=== PATIENT | female | born 1980 | race African-American/Black ===

== ENCOUNTER 2016-10-21 08:59 | Emergency (ER) | payer OTHER ==
[2016-10-21 09:14] VITALS: BP 102/79; PULSE 73; TEMP 98.3; BMI 33.5
[2016-10-21] MEDS ORDERED: KETOROLAC TROMETHAMINE 60 MG/2 ML VIAL IM ONE (10:09)
[2016-10-21] MEDS ORDERED: KETOROLAC TROMETHAMINE 60 MG/2 ML VIAL ONE (10:14)
--- NOTE | 2016-10-21 10:15 | PDOC ---
History of Present Illness - General Chief Complaint: Back Pain Stated Complaint: BACK PAIN Time Seen by Provider: 10/21/16 09:48 Exam Limitations: No Limitations - History of Present Illness Initial Comments: 10/21/16 10:12 Chief complaint: Right lower back pain without radiation down legs History of present illness: Patient is a 35-year-old female employee of [employer] in [facility] with no significant medical history here today complaining of waking yesterday with right lower back pain without any radiation down legs or any numbness of her legs or any saddle anesthesia or incontinency. Patient reports that she lifted things 2 days ago as usual and did not feel any back pain. Patient reports that right sided back pain is an 8 out of 10 with deep aching sensation with movement only. Patient feels better if not standing up correctly slightly bent forward. Patient denies any urinary symptoms or any abdominal pain. Patient denies any history of back injuries in the past. Patient denies any chance of has not sexually active. 10/21/16 20:26 Occurred: reports: other (yesterday ) Severity: reports: moderate Pain Location: reports: back (right lower back ) Method of Injury: Yes: unknown Modifying Factors: improves with: None Loss of Consciousness: no loss of consciousness Associated Symptoms (Fall): other (pain worse with movement getting up from seated positions ) Past History - Past Medical History Allergies/Adverse Reactions: Allergies Allergy/AdvReac Type Severity Reaction Status Date / Time No Known Allergies Allergy Verified 10/21/16 09:11 Home Medications: Ambulatory Orders Cyclobenzaprine HCl [Flexeril -] 10 mg PO Q8H PRN #21 tablet 10/21/16 Naproxen [Naprosyn -] 500 mg PO BID PRN #14 tablet 10/21/16 Anemia: No Asthma: No Diabetes: No HTN: No Hypercholesterolemia: No Other medical history: DENIES. - Reproductive History (#): 2 Para: 2 - Psycho/Social/Smoking Cessation Hx Anxiety: No Suicidal Ideation: No Smoking Status: Yes Smoking History: Current every day smoker Have you smoked in the past 12 months: Yes Number of Cigarettes Smoked Daily: 10 Information on smoking cessation initiated: No Hx Alcohol Use: No Drug/Substance Use Hx: No Substance Use Type: Cocaine Review of Systems - Review of Systems Able to Perform ROS?: Yes Constitutional: No: Symptoms Reported HEENTM: No: Symptoms Reported Respiratory: No: Symptoms reported Cardiac (ROS): No: Symptoms Reported ABD/GI: No: Symptoms Reported : No: Symptoms Reported Musculoskeletal: Yes: Back Pain (right lumbar back pain without radiation ) Integumentary: No: Symptoms Reported Neurological: No: Symptoms reported *Physical Exam - Vital Signs Last Vital Signs Temp Pulse Resp BP Pulse Ox 98.3 F 73 19 102/79 97 10/21/16 09:11 10/21/16 09:11 10/21/16 09:11 10/21/16 09:11 10/21/16 09:11 - Physical Exam General Appearance: Yes: Appropriately Dressed Respiratory/Chest: positive: Lungs Clear, Normal Breath Sounds. negative: Chest Tender, Respiratory Distress Cardiovascular: positive: Regular Rhythm, Regular Rate, S1, S2 Gastrointestinal/Abdominal: positive: Normal Bowel Sounds, Soft. negative: Tender, Organomegaly, Distended, Guarding, Rebound, Tenderness, Hepatomegaly, Spleenomegaly Musculoskeletal: positive: Normal Inspection, Decreased Range of Motion (from waist with bending, lateral movement of torso ). negative: CVA Tenderness, CVA Tenderness (R), CVA Tenderness (L), Vertebral Tenderness Extremity: positive: Normal Capillary Refill, Normal Inspection, Normal Range of Motion Integumentary: positive: Normal Color Neurologic: positive: Alert, Normal Response, Motor Strength 5/5 (legs b/l ), Respond to painful stimul (klegs ), Responsive, Other (negative SLR b/l ). negative: Sensory Deficit (legs ) Medical Decision Making - Medical Decision Making 10/21/16 10:14 Patient is a 35-year-old female with no significant medical history here today complaining of waking yesterday with right lower back pain without any radiation down legs or any numbness of her legs or any saddle anesthesia or incontinency. Patient reports that she lifted things 2 days ago as usual and did not feel any back pain. Patient reports that right sided back pain is an 8 out of 10 with deep aching sensation with movement only. Patient feels better if not standing up correctly slightly bent forward. Patient denies any urinary symptoms or any abdominal pain. Patient denies any history of back injuries in the past. Patient denies any chance of has not sexually active. Right sided lower back pain lumbar area muscular skeletal Plan: Toradol 60 mg IM now Urinalysis urine hcg negative 10/21/16 11:10 valium 5 mg po now flexeril 10 mg q 8 hrs prn muscle spasm naprosyn 500 mg bid prn pain follow up with orthopedist within next few days if pain continues *DC/Admit/Observation/Transfer Diagnosis at time of Disposition: Back pain Qualifiers: Back pain location: low back pain Chronicity: acute Back pain laterality: right Sciatica presence: without sciatica Qualified Code(s): M54.5 - Low back pain - Discharge Dispostion Disposition: HOME Condition at time of disposition: Stable - Prescriptions Prescriptions: Cyclobenzaprine HCl [Flexeril -] 10 mg PO Q8H PRN #21 tablet PRN Reason: Muscle Spasms Naproxen [Naprosyn -] 500 mg PO BID PRN #14 tablet PRN Reason: Pain - Referrals Referrals: Fior Sosa MD [Primary Care Provider] - Janusz Ferguson MD [Staff Physician] - - Patient Instructions Additional Instructions: Avoid any strenuous activities or lifting or exercise Follow-up with orthopedist within the next few days if pain continues Return to emergency room if any numbness of groin or legs or worsening pain Patient voiced understanding of discharge instructions and all questions were answered - Post Discharge Activity Work/School Note: Back to Work
[2016-10-21 10:55] LABS: URINE APPEARANCE CLEAR; URINE BILIRUBIN NEGATIVE (NEGATIVE); URINE BLOOD NEGATIVE (NEGATIVE); URINE COLOR STRAW; URINE GLUCOSE (UA) NEGATIVE (NEGATIVE); URINE KETONE NEGATIVE (NEGATIVE); URINE LEUK ESTERASE NEGATIVE (NEGATIVE); URINE NITRITE NEGATIVE (NEGATIVE); URINE PROTEIN NEGATIVE (NEGATIVE); URINE UROBILINOGEN NEGATIVE E.U./dl (0.2-1.0)
[2016-10-21] MEDS ORDERED: diazePAM 5 MG TABLET PO ONE (11:08)
[2016-10-21] MEDS ORDERED: diazePAM 5 MG TABLET ONE (11:11)
== END 2016-10-21 11:15 | disposition home or self-care (01) ==
LOC: JERFT 08:59
PROC: 3E0233Z Introduction of Anti-inflammatory into Muscle, Percutaneous Approach (ICD-10-PCS; principal; 2016-10-21)
DX: M54.5 Low back pain (principal); F17.210 Nicotine dependence, cigarettes, uncomplicated
CPT/HCPCS: 81003; 84703; 99281-25

== ENCOUNTER 2017-12-26 20:01 | Emergency (ER) | payer OTHER ==
--- NOTE | 2017-12-26 20:12 | PDOC ---
Rapid Medical Evaluation Time Seen by Provider: 12/26/17 20:10 Medical Evaluation: Allergies Allergy/AdvReac Type Severity Reaction Status Date / Time No Known Allergies Allergy Verified 12/26/17 20:10 12/26/17 20:10 I have performed a brief in-person evaluation of this patient. The patient presents with a chief complaint of: swelling to b/l ankles, increasing dyspnea Pertinent physical exam findings: mild non pitting edema to b/l lower extremities I have ordered the following: labs, ekg, cxr The patient will proceed to the ED for further evaluation. Discharge Disposition - Diagnosis Edema - Referrals - Patient Instructions - Post Discharge Activity
[2017-12-26 20:17] VITALS: PULSE 75; BMI 35.6
--- NOTE | 2017-12-26 21:25 | PDOC ---
History of Present Illness - General History Source: Patient Exam Limitations: No Limitations - History of Present Illness Initial Comments: 12/26/17 21:32 The patient is a 37 year old with PMH of rheumatoid arthritis and Lupus (not active) presents to the ED with right foot pain. The patient reports it is common for her to have leg swelling due to RA but since yesterday they been getting bigger in size.The patient reports she is SOB but states it due to her being a smoker. The patient states her work requires her to be on her feet most of the time and denies the use of compression socks. Denies any recent travel or trauma Denies the use of control. The patient denies chest pain,, headache and dizziness. Denies fever, chills, nausea, vomit, diarrhea and constipation. Denies dysuria, frequency, urgency and hematuria. Surgical History: None reported Allergies: None reported PCP: Dr. Fior Sosa <Kelley Estevez - Last Filed: 12/26/17 21:32> <Lizbet Jeffers - Last Filed: 12/27/17 00:42> - General Chief Complaint: Edema Stated Complaint: SWOLLEN ANKLES Time Seen by Provider: 12/26/17 20:10 Past History <Kelley Estevez - Last Filed: 12/26/17 21:32> - Past Medical History Anemia: No Asthma: No COPD: No Diabetes: No HTN: No Hypercholesterolemia: No Other medical history: Rh arthritis - Reproductive History (#): 2 Para: 2 - Suicide/Smoking/Psychosocial Hx Smoking Status: Yes Smoking History: Current every day smoker Have you smoked in the past 12 months: Yes Number of Cigarettes Smoked Daily: 10 Information on smoking cessation initiated: No Hx Alcohol Use: No Drug/Substance Use Hx: No Substance Use Type: Cocaine <Lizbet Jeffers - Last Filed: 12/27/17 00:42> - Past Medical History Allergies/Adverse Reactions: Allergies Allergy/AdvReac Type Severity Reaction Status Date / Time No Known Allergies Allergy Verified 12/26/17 20:10 Home Medications: Ambulatory Orders NK [No Known Home Medication] 12/26/17 Review of Systems - Review of Systems Able to Perform ROS?: Yes Comments:: 12/26/17 21:58 GENERAL/CONSTITUTIONAL: No fever or chills. No weakness. HEAD, EYES, EARS, NOSE AND THROAT: No change in vision. No ear pain or discharge. No sore throat. CARDIOVASCULAR: No chest pain or shortness of breath. RESPIRATORY: (+) SOB due to history of smoking. No cough, wheezing, or hemoptysis. GASTROINTESTINAL: No nausea, vomiting, diarrhea or constipation. GENITOURINARY: No dysuria, frequency, or change in urination. MUSCULOSKELETAL: (+) right foot pain and swelling.No muscle swelling or pain. No neck or back pain. SKIN: No rash NEUROLOGIC: No headache, vertigo, loss of consciousness, or change in strength/ sensation. ENDOCRINE: No increased thirst. No abnormal weight change. HEMATOLOGIC/LYMPHATIC: No anemia, easy bleeding, or history of blood clots. ALLERGIC/IMMUNOLOGIC: No hives or skin allergy. <Kelley Estevez - Last Filed: 12/26/17 21:32> *Physical Exam - Vital Signs Last Vital Signs Temp Pulse Resp BP Pulse Ox 98.3 F 75 18 99/77 98 12/26/17 20:15 12/26/17 20:15 12/26/17 20:15 12/26/17 20:15 12/26/17 20:15 - Physical Exam Comments: 12/26/17 21:58 GENERAL: Awake, alert, and fully oriented, in no acute distress HEAD: No signs of trauma EYES: PERRLA, EOMI, sclera anicteric, conjunctiva clear ENT: Auricles normal inspection, hearing grossly normal, nares patent, oropharynx clear without exudates. Moist mucosa NECK: Normal ROM, supple, no lymphadenopathy, JVD, or masses LUNGS: Breath sounds equal, clear to auscultation bilaterally. No wheezes, and no crackles HEART: Regular rate and rhythm, normal S1 and S2, no murmurs, rubs or gallops ABDOMEN: (+) obese. Soft, nontender, normoactive bowel sounds. No guarding, no rebound. No masses EXTREMITIES: (+) swelling, no pitting edema of the lower leg. Right greater than left. Pedial pulse intact. Tenderness of the calf bilaterally. Normal range of motion.No clubbing or cyanosis. No cords, erythema. NEUROLOGICAL: Cranial nerves II through XII grossly intact. Normal speech, normal gait SKIN: Warm, Dry, normal turgor, no rashes or lesions noted. <Kelley Estevez - Last Filed: 12/26/17 21:32> - Vital Signs Last Vital Signs Temp Pulse Resp BP Pulse Ox 98.3 F 75 18 99/77 98 12/26/17 20:15 12/26/17 20:15 12/26/17 20:15 12/26/17 20:15 12/26/17 20:15 <Lizbet Jeffers - Last Filed: 12/27/17 00:42> Heart Score/ECG Review - ECG Intrepretation Comment:: 12/26/17 23:07 sinus at 67, nl axis, nl interval, q waves septally that are age indeterminate, t wave inversions V2-3 <Lizbet Jeffers - Last Filed: 12/27/17 00:42> ED Treatment Course - LABORATORY CBC & Chemistry Diagram: 12/26/17 22:35 12/26/17 22:35 - RADIOLOGY Radiology Studies Ordered: Category Date Time Status DUPLEX VASCUL US-2LEGS [US] Stat Ultrasound 12/26/17 21:01 Ordered <Lizbet Jeffers - Last Filed: 12/27/17 00:42> Medical Decision Making - Medical Decision Making 12/26/17 21:23 a/p: 37yo female with LE edema -worsening over the last few days/weeks, not resolving with laying down/off feet at night -hx of RA on plaquenil -not on steroids -calf tightness -will obtain labs, bnp, ekg, trop, cxr, LE doppler -will monitor and reassess -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 <Kelley Estevez - Last Filed: 12/26/17 21:32> - Discharge Dispostion Admit: No - Attestations Physician Attestion: 12/27/17 00:15 I, Dr. Lizbet Jeffers DO, attest that this document has been prepared under my direction and personally reviewed by me in its entirety. I further attest, that it accurately reflects all work, treatment, procedures and medical decision -making performed by me. <Lizbet Jeffers - Last Filed: 12/27/17 00:42> Diagnosis at time of Disposition: Edema - Discharge Dispostion Disposition: HOME Condition at time of disposition: Stable - Referrals Referrals: Fior Sosa MD [Primary Care Provider] - - Patient Instructions Printed Discharge Instructions: DI for Dependent Edema Additional Instructions: Please follow up with your PMD and your employee welfare manager. Please return to the ED with any further concerns or complaints. Please buy compression stockings and wear the compression stockings while at work. Please keep your legs elevated at night. - Post Discharge Activity
[2017-12-26 22:45] LABS: EOS % 5.1 % (0-4.5); HEMATOCRIT 37.9 % (32.4-45.2); HEMOGLOBIN 13.2 GM/dL (10.7-15.3); LYMPH % 56.2 % (8-40); MCH 30.6 pg (25.7-33.7); MCHC 34.9 g/dl (32.0-36.0); MEAN CELL VOLUME 87.6 fl (80-96); MONO % 7.8 % (3.8-10.2); NEUT % 29.9 % (42.8-82.8); PLATELET COUNT 247 K/MM3 (134-434); RBC 4.32 M/mm3 (3.60-5.2); RDW 13.4 % (11.6-15.6); WHITE BLOOD COUNT 4.6 K/mm3 (4.0-10.0)
[2017-12-26 22:52] VITALS: BP 103/71; TEMP 98
[2017-12-26] MEDS ORDERED: ACETAMINOPHEN 325 MG TABLET (FP) PO ONE (22:52)
[2017-12-26] MEDS ORDERED: ACETAMINOPHEN 325 MG TABLET (FP) ONE (22:54)
[2017-12-26 22:58] LABS: INR 1.08 (0.82-1.09); PROTHROMBIN TIME (PATIENT) 12.2 SEC (9.98-11.88)
[2017-12-26 23:18] LABS: ALBUMIN 3.9 g/dl (3.4-5.0); ANION GAP 8 (8-16); BILIRUBIN,TOTAL 0.2 mg/dL (0.2-1.0); BLOOD UREA NITROGEN 13 mg/dL (7-18); CHLORIDE 109 mmol/L (98-107); CO2 22 mmol/L (21-32); CREATININE 0.7 mg/dL (0.55-1.02); GLUCOSE,RANDOM 88 mg/dL (74-106); N-TERMINAL BNP 22.8 pg/ml (5-125); POTASSIUM 4.1 mmol/L (3.5-5.1); SGOT/AST 22 U/L (15-37); SGPT/ALT 20 U/L (12-78); SODIUM 139 mmol/L (136-145); TOT PROT 7.8 g/dl (6.4-8.2)
[2017-12-26 23:21] LABS: ALK PHOS 48 U/L (45-117)
[2017-12-26 23:52] LABS: URINE APPEARANCE CLEAR; URINE BILIRUBIN NEGATIVE (<2.0 mg/dL); URINE BLOOD NEGATIVE (NEGATIVE); URINE COLOR YELLOW; URINE GLUCOSE (UA) NEGATIVE (NEGATIVE); URINE KETONE NEGATIVE (NEGATIVE); URINE LEUK ESTERASE NEGATIVE (NEGATIVE); URINE NITRITE NEGATIVE (NEGATIVE); URINE PROTEIN NEGATIVE (NEGATIVE); URINE UROBILINOGEN NEGATIVE mg/dL (0.2-1.0)
[2017-12-27 00:08] LABS: HCG,QUALITATIVE URINE NEGATIVE
--- NOTE | 2017-12-27 09:53 | EKG ---
Test Reason : Blood Pressure : / mmHG Vent. Rate : 067 BPM Atrial Rate : 067 BPM P-R Int : 170 ms QRS Dur : 076 ms QT Int : 410 ms P-R-T Axes : 031 -03 032 degrees QTc Int : 433 ms NORMAL SINUS RHYTHM SEPTAL INFARCT , AGE UNDETERMINED NONSPECIFIC T WAVE ABNORMALITY NO PREVIOUS ECGS AVAILABLE Confirmed by ANDRES POE MD ([id number]) on 12/27/2017 9:53:13 AM Referred By: Confirmed By:ANDRES POE MD
== END 2017-12-27 00:45 | disposition home or self-care (01) ==
LOC: JER 20:01
DX: R60.0 Localized edema (principal); M06.80 Other specified rheumatoid arthritis, unspecified site; M32.9 Systemic lupus erythematosus, unspecified; F17.210 Nicotine dependence, cigarettes, uncomplicated
CPT/HCPCS: 36415; 71046-TC-FY; 80053; 81003; 82550; 82553; 83735; 83880; 84484; 84703; 85025; 85610; 93005; 93010; 93970-TC; 99282-25

== ENCOUNTER 2018-05-25 13:31 | Emergency (ER) | payer OTHER ==
[2018-05-25 13:36] VITALS: BP 98/72; PULSE 76; TEMP 98.7; BMI 35.5
--- NOTE | 2018-05-25 13:49 | PDOC ---
History of Present Illness - General Chief Complaint: Urinary Problem Stated Complaint: EMPLOYEE, URINARY PROBLEM Time Seen by Provider: 05/25/18 13:37 History Source: Patient Exam Limitations: No Limitations - History of Present Illness Travel History: No Initial Comments: 05/25/18 13:57 37 yr female with c/o 3 days urinary urgency and frequency . no vaginal discharge, mild suprapubic discomfort. no fever no chills no vaginal bleeding or discharge. Past History - Past Medical History Allergies/Adverse Reactions: Allergies Allergy/AdvReac Type Severity Reaction Status Date / Time No Known Allergies Allergy Verified 05/25/18 13:36 Home Medications: Ambulatory Orders Cephalexin [Keflex] 500 mg PO BID #10 capsule 05/25/18 Anemia: No Asthma: No COPD: No Diabetes: No HTN: No Hypercholesterolemia: No Other medical history: lupus and rheumatoid arthritis - Reproductive History (#): 2 Para: 2 - Suicide/Smoking/Psychosocial Hx Smoking Status: Yes Smoking History: Current every day smoker Have you smoked in the past 12 months: Yes Number of Cigarettes Smoked Daily: 10 Information on smoking cessation initiated: No Hx Alcohol Use: No Drug/Substance Use Hx: No Substance Use Type: Cocaine Abd/GI Specific PMHX - Complaint Specific PMHX Other History: UTI Review of Systems - Review of Systems Able to Perform ROS?: Yes Is the patient limited Thai proficient: No Constitutional: No: Symptoms Reported HEENTM: No: Symptoms Reported Respiratory: No: Symptoms reported Cardiac (ROS): No: Symptoms Reported ABD/GI: No: Symptoms Reported : Yes: Symptoms Reported *Physical Exam - Vital Signs Last Vital Signs Temp Pulse Resp BP Pulse Ox 98.7 F 76 18 98/72 99 05/25/18 13:32 05/25/18 13:32 05/25/18 13:32 05/25/18 13:32 05/25/18 13:32 *DC/Admit/Observation/Transfer Diagnosis at time of Disposition: Urinary tract infection Qualifiers: Urinary tract infection type: acute cystitis Hematuria presence: without hematuria Qualified Code(s): N30.00 - Acute cystitis without hematuria - Discharge Dispostion Disposition: HOME Condition at time of disposition: Good - Prescriptions Prescriptions: Cephalexin [Keflex] 500 mg PO BID #10 capsule - Referrals Referrals: Fior Sosa MD [Primary Care Provider] - - Patient Instructions Additional Instructions: we will treat for 5 days with keflex antibiotic we have sent urine culture to the lab we will call you if the culture is positive for any specific organism drink pleanty of water to stay hydrated follow with your doctor this week if symptoms worsen or persist - Post Discharge Activity
[2018-05-25 13:51] LABS: URINE APPEARANCE CLEAR; URINE BILIRUBIN NEGATIVE (<2.0 mg/dL); URINE COLOR YELLOW; URINE GLUCOSE (UA) NEGATIVE (NEGATIVE); URINE KETONE NEGATIVE (NEGATIVE); URINE LEUK ESTERASE NEGATIVE (NEGATIVE); URINE NITRITE NEGATIVE (NEGATIVE); URINE PROTEIN NEGATIVE (NEGATIVE)
[2018-05-25 13:53] LABS: HCG,QUALITATIVE URINE Negative
== END 2018-05-25 14:08 | disposition home or self-care (01) ==
LOC: JERFT 13:31
DX: N30.00 Acute cystitis without hematuria (principal); F17.210 Nicotine dependence, cigarettes, uncomplicated; M32.9 Systemic lupus erythematosus, unspecified
CPT/HCPCS: 36415; 81003; 84703; 87086; 87491; 87591; 99281-25

== ENCOUNTER 2019-05-19 09:30 | Emergency (ER) | payer OTHER | END 2019-05-19 11:10 | disposition home or self-care (01) | LOC: JER 09:30 → JERFT 11:10 | PROC: 3E0233Z Introduction of Anti-inflammatory into Muscle, Percutaneous Approach (ICD-10-PCS; principal; 2019-05-19) | DX: M54.42 Lumbago with sciatica, left side (principal); M62.830 Muscle spasm of back; M06.9 Rheumatoid arthritis, unspecified; Z87.39 Personal history of other diseases of the musculoskeletal system and connective tissue ==

== ENCOUNTER 2019-09-18 10:14 | Emergency (ER) | payer OTHER ==
[2019-09-18 10:24] VITALS: PULSE 74; BMI 32.2
[2019-09-18] MEDS ORDERED: ONDANSETRON 4 MG/2 ML VIAL IVPUSH ONE (11:02)
[2019-09-18] MEDS ORDERED: SODIUM CHLORIDE 1,000 ML IV STA (11:02)
[2019-09-18] MEDS ORDERED: ONDANSETRON 4 MG/2 ML VIAL ONE (11:11)
[2019-09-18 11:32] LABS: BASO % 2.1 % (0-2.0); EOS % 2.7 % (0-4.5); HEMATOCRIT 37.3 % (32.4-45.2); HEMOGLOBIN 12.5 GM/dL (10.7-15.3); LYMPH % 36.9 % (8-40); MCH 29.6 pg (25.7-33.7); MCHC 33.5 g/dl (32.0-36.0); MEAN CELL VOLUME 88.3 fl (80-96); MEAN PLT VOLUME 8.3 fl (7.5-11.1); MONO % 6.6 % (3.8-10.2); NEUT % 51.7 % (42.8-82.8); PLATELET COUNT 311 K/MM3 (134-434); RBC 4.22 M/mm3 (3.60-5.2); RDW 14.2 % (11.6-15.6); WHITE BLOOD COUNT 6.7 K/mm3 (4.0-10.0)
[2019-09-18 12:03] LABS: ALBUMIN 3.7 g/dl (3.4-5.0); BILIRUBIN,TOTAL 0.2 mg/dL (0.2-1); BLOOD UREA NITROGEN 16.4 mg/dL (7-18); CALCIUM 9.5 mg/dL (8.5-10.1); CREATININE 0.7 mg/dL (0.55-1.3); POTASSIUM 4.4 mmol/L (3.5-5.1); TOT PROT 7.3 g/dl (6.4-8.2)
--- NOTE | 2019-09-18 13:26 | PDOC ---
History of Present Illness - General Chief Complaint: Nausea/Vomiting Stated Complaint: VOMITING,NAUSEA Time Seen by Provider: 09/18/19 11:01 History Source: Patient Exam Limitations: No Limitations - History of Present Illness Initial Comments: 09/18/19 13:28 CHIEF COMPLAINT: Vomiting HISTORY OF PRESENT ILLNESS: This is an otherwise healthy 38-year-old female presents for evaluation of generalized abdominal pain and vomiting since last night. Patient denies chest pain, diaphoresis, shortness of breath, diarrhea, constipation, fever/chills or any other symptoms. Vital signs on arrival are notable for BP 96/55. PCP: Dr. Orozco REVIEW OF SYSTEMS: GENERAL/CONSTITUTIONAL: No fever or chills. No weakness. No weight change. HEAD, EYES, EARS, NOSE AND THROAT: No change in vision. No ear pain or discharge. No sore throat. CARDIOVASCULAR: No chest pain or palpitations. RESPIRATORY: No cough, wheezing, or shortness of breath. GASTROINTESTINAL: See HPI. GENITOURINARY: No dysuria, frequency, or change in urination. MUSCULOSKELETAL: No joint or muscle swelling or pain. No neck or back pain. SKIN: No rash or easy bruising. NEUROLOGIC: No headache, vertigo, loss of consciousness, or loss of sensation. PSYCHIATRIC: No depression or anxiety. ENDOCRINE: No increased thirst. No abnormal weight change. HEMATOLOGIC/LYMPHATIC: No anemia, easy bleeding, or history of blood clots. ALLERGIC/IMMUNOLOGIC: No hives or skin allergy. No latex allergy. PHYSICAL EXAM: GENERAL: The patient is awake, alert, and fully oriented, in no acute distress. HEAD: Normal with no signs of trauma. ENT: Pupils equal, round and reactive to light, extraocular movements intact, sclera anicteric, conjunctiva clear. Neck supple. LUNGS: Clear to auscultation bilaterally. Normal excursion. No respiratory distress or use of accessory muscles. CV: RRR, S1/S2, no MRG. Cap refill < 2 sec. ABDOMEN: Soft, non-distended, no focal tenderness even to deep palpation. EXTREMITIES: Normal range of motion, no edema. NEUROLOGICAL: Normal speech, normal gait. CN II-XII grossly intact. PSYCH: Normal mood, normal affect. SKIN: Warm, dry, normal turgor, no rashes or lesions noted. Past History - Past Medical History Allergies/Adverse Reactions: Allergies Allergy/AdvReac Type Severity Reaction Status Date / Time No Known Allergies Allergy Verified 05/19/19 09:36 Home Medications: Ambulatory Orders Cephalexin [Keflex] 500 mg PO BID #10 capsule 05/25/18 Acetaminophen [Tylenol -] 500 mg PO Q4H #30 tablet 05/19/19 Cyclobenzaprine HCl [Flexeril -] 10 mg PO HS #10 tablet 05/19/19 Methylprednisolone [Medrol Dose [place]] 4 mg PO ASDIR #21 tablet 05/19/19 Ondansetron [Zofran *Odt*] 4 mg SL TID PRN #21 od.tablet 09/18/19 Anemia: No Asthma: No COPD: No Diabetes: No HTN: No Hypercholesterolemia: No - Reproductive History (#): 2 Para: 2 - Immunization History Immunization Up to Date: No - Psycho Social/Smoking Cessation Hx Smoking Status: Yes Smoking History: Current every day smoker Have you smoked in the past 12 months: Yes Number of Cigarettes Smoked Daily: 5 Information on smoking cessation initiated: No Hx Alcohol Use: No Drug/Substance Use Hx: No Substance Use Type: Cocaine *Physical Exam - Vital Signs Last Vital Signs Temp Pulse Resp BP Pulse Ox 98.1 F 74 18 96/55 L 98 09/18/19 10:21 09/18/19 10:21 09/18/19 10:21 09/18/19 10:21 09/18/19 10:21 ED Treatment Course - LABORATORY CBC & Chemistry Diagram: 09/18/19 11:00 09/18/19 11:00 - ADDITIONAL ORDERS Additional order review: Laboratory Results 09/18/19 11:00 Sodium 137 Potassium 4.4 Chloride 108 H Carbon Dioxide 23 Anion Gap 6 L BUN 16.4 Creatinine 0.7 Est GFR (CKD-EPI)AfAm 125.61 Est GFR (CKD-EPI)NonAf 108.38 Random Glucose 90 Calcium 9.5 Total Bilirubin 0.2 AST 17 ALT 29 Alkaline Phosphatase 60 Total Protein 7.3 Albumin 3.7 Lipase 99 09/18/19 11:00 RBC 4.22 MCV 88.3 MCHC 33.5 RDW 14.2 MPV 8.3 Neutrophils % 51.7 Lymphocytes % 36.9 Monocytes % 6.6 Eosinophils % 2.7 Basophils % 2.1 H - Medications Given in the ED: ED Medications Discontinued Medications Generic Name Dose Route Start Last Admin Trade Name Freq PRN Reason Stop Dose Admin Sodium Chloride 1,000 mls @ 1,000 mls/hr 09/18/19 11:02 09/18/19 11:13 Normal Saline - IV 09/18/19 12:01 1,000 mls/hr ASDIR STA Administration Ondansetron HCl 4 mg 09/18/19 11:02 09/18/19 11:13 Zofran Injection IVPUSH 09/18/19 11:03 4 mg ONCE ONE Administration Medical Decision Making - Medical Decision Making 09/18/19 13:29 A/P: 38-year-old female with generalized abdominal pain and vomiting. Benign abdominal exam. -Labs including CBC, CMP, lipase, UA -Normal saline 1 L bolus for hydration -Zofran 4 mg IVP for nausea Labs reviewed and are unremarkable. Patient able to tolerate keon crackers and juice. Repeat abdominal exam is benign. Will discharge with supportive measures and PCP follow-up. Return precautions reviewed. Discharge - Discharge Information Problems reviewed: Yes Clinical Impression/Diagnosis: Vomiting Condition: Stable Disposition: HOME - Admission No - Additional Discharge Information Prescriptions: Ondansetron [Zofran *Odt*] 4 mg SL TID PRN #21 od.tablet PRN Reason: Nausea - Follow up/Referral Referrals: Fior Sosa MD [Primary Care Provider] - 3 days - Patient Discharge Instructions Patient Printed Discharge Instructions: DI for Vomiting -- Adult, [place] Diet Additional Instructions: Eat a bland diet (instructions and close) until you are feeling better. Drink plenty of fluids. Take Zofran as prescribed if needed for nausea/vomiting. Follow-up with Dr. Sosa next week. Return here for persistent vomiting/inability to keep down fluids, fevers, severe abdominal pain, or any other concerning symptoms. - Post Discharge Activity Work/Back to School Note: Back to Work
[2019-09-18 13:37] VITALS: BP 98/68; TEMP 98
== END 2019-09-18 13:37 | disposition home or self-care (01) ==
LOC: JER 10:14
PROC: 3E033GC Introduction of Other Therapeutic Substance into Peripheral Vein, Percutaneous Approach (ICD-10-PCS; principal; 2019-09-18)
DX: R11.10 Vomiting, unspecified (principal)
CPT/HCPCS: 36415; 80053; 83690; 85025; 99283-25; J7030

== ENCOUNTER 2022-12-29 12:41 | Emergency (ER) | payer OTHER ==
[2022-12-29 12:48] VITALS: BP 104/69; PULSE 82; RESP 20; TEMP 98.6; BMI 36.9
== END 2022-12-29 14:32 | disposition home or self-care (01) ==
LOC: JERFT 12:41
DX: K08.89 Other specified disorders of teeth and supporting structures (principal)
CPT/HCPCS: 99283-25

== ENCOUNTER 2023-02-19 23:14 | Emergency (ER) | payer OTHER ==
[2023-02-19 23:25] VITALS: BP 106/72; PULSE 78; RESP 18; TEMP 98; BMI 37.6
[2023-02-20] MEDS ORDERED: ONDANSETRON 4 MG/2 ML VIAL IVPB ONE (00:27)
[2023-02-20] MEDS ORDERED: FAMOTIDINE 20 MG/50 ML IVPB 20 MG/50 ML MG IVPB ONE ×2 (00:27→00:52)
[2023-02-20] MEDS ORDERED: ACETAMINOPHEN 1000 MG/100 ML BAG IVPB ONE (00:28)
[2023-02-20] MEDS ORDERED: SODIUM CHLORIDE 0.9% 500 ML INFUS.BAG IV ONE (00:28)
[2023-02-20] MEDS ORDERED: ONDANSETRON 4 MG/2 ML VIAL ONE (00:52)
[2023-02-20 01:26] LABS: BASO % 0.7 % (0-2.0); EOS % 6.4 % (0-4.5); HEMATOCRIT 35.9 % (32.4-45.2); HEMOGLOBIN 12.2 GM/dL (10.7-15.3); LYMPH % 36.5 % (8-40); MCH 29.3 pg (25.7-33.7); MCHC 33.9 g/dl (32.0-36.0); MEAN CELL VOLUME 86.5 fl (80-96); MEAN PLT VOLUME 8.1 fl (7.5-11.1); MONO % 6.2 % (3.8-10.2); NEUT % 50.2 % (42.8-82.8); PLATELET COUNT 263 10^3/uL (134-434); RBC 4.15 M/mm3 (3.60-5.2); RDW 14.3 % (11.6-15.6); WHITE BLOOD COUNT 8.4 K/mm3 (4.0-10.0)
[2023-02-20 01:39] LABS: POTASSIUM 5.8 mmol/L (3.5-5.1)
[2023-02-20 01:41] LABS: BLOOD UREA NITROGEN 13.3 mg/dL (7-18); CALCIUM 8.6 mg/dL (8.5-10.1)
[2023-02-20 01:42] LABS: ALBUMIN 3.4 g/dl (3.4-5.0)
[2023-02-20 01:45] LABS: CREATININE 0.7 mg/dL (0.55-1.3)
[2023-02-20 01:46] LABS: BILIRUBIN,TOTAL 0.4 mg/dL (0.2-1); TOT PROT 6.9 g/dl (6.4-8.2)
[2023-02-20 02:32] LABS: CALCIUM 8.2 mg/dL (8.5-10.1)
[2023-02-20 02:33] LABS: BLOOD UREA NITROGEN 12.4 mg/dL (7-18)
[2023-02-20 02:36] LABS: CREATININE 0.6 mg/dL (0.55-1.3)
== END 2023-02-20 03:53 | disposition home or self-care (01) ==
LOC: JER 23:14
PROC: 3E033GC Introduction of Other Therapeutic Substance into Peripheral Vein, Percutaneous Approach (ICD-10-PCS; principal; 2023-02-20)
PROC: 3E033NZ Introduction of Analgesics, Hypnotics, Sedatives into Peripheral Vein, Percutaneous Approach (ICD-10-PCS; 2023-02-20)
PROC: 3E033GC Introduction of Other Therapeutic Substance into Peripheral Vein, Percutaneous Approach (ICD-10-PCS; 2023-02-20)
DX: R10.33 Periumbilical pain (principal); R19.7 Diarrhea, unspecified; R11.0 Nausea
CPT/HCPCS: 36415; 80048; 80053; 83690; 84703; 85025; 99284-25

== ENCOUNTER 2023-08-11 12:43 | Emergency (ER) | payer OTHER ==
[2023-08-11 12:58] VITALS: BP 101/65; PULSE 104; RESP 20; TEMP 100.9; BMI 38.3
[2023-08-11] MEDS ORDERED: ACETAMINOPHEN 500 MG TABLET (FP) PO ONE (14:42)
[2023-08-11] MEDS ORDERED: ACETAMINOPHEN 500 MG TABLET (FP) ONE ×2 (14:54→15:05)
== END 2023-08-11 15:03 | disposition home or self-care (01) ==
LOC: JERFT 12:43
DX: R09.81 Nasal congestion (principal); R05.9 Cough, unspecified; R09.89 Other specified symptoms and signs involving the circulatory and respiratory systems; M79.10 Myalgia, unspecified site; J10.1 Influenza due to other identified influenza virus with other respiratory manifestations; J06.9 Acute upper respiratory infection, unspecified; Z20.822 Contact with and (suspected) exposure to COVID-19
CPT/HCPCS: 0241U-QW; 99283-25